=== PATIENT | female | born 1980 | race Caucasian/White ===

== ENCOUNTER → 2024-06-30 | Outpatient (CLI) | payer BC | END | disposition home or self-care (01) | LOC: RAD 15:44 | PROVIDERS: ATTEND Chiropractor | DX: M47.816 Spondylosis without myelopathy or radiculopathy, lumbar region (principal); M48.061 Spinal stenosis, lumbar region without neurogenic claudication; M47.812 Spondylosis without myelopathy or radiculopathy, cervical region | CPT/HCPCS: 72040; 72100 ==

== ENCOUNTER → 2025-03-14 | Outpatient (CLI) | payer BC ==
[2025-03-14 15:32] LABS: ABSOLUTE RETICS # 0.0736 10^6uL; BASOPHIL % 0.3 % (0.1-1.2); EOSINOPHIL # 0.1 10^3/uL (0.0-0.2); EOSINOPHIL % 1.4 % (0.0-5.0); HEMATOCRIT(ML) 42.2 % (36.0-46.0); LYMPHOCYTES # 3.39 10^3/uL1 (1.0-4.8); LYMPHOCYTES % 34.4 % (24.0-44.0); MEAN CORP HGB 29.1 pg (26-34); MEAN CORP HGB CONCENTRATION 33.2 g/dL (33-36.5); MEAN CORP VOLUME 87.7 fL (78-100); MONOCYTES # 0.7 10^3/uL (0.3-0.8); MONOCYTES % 7.1 % (5.0-12.0); NEUTROPHIL # 5.6 10^3/uL (1.8-7.7); NEUTROPHILS % 56.7 % (41.0-85.0); PLATELET COUNT 215 10^3/uL (150-400); RED BLOOD CELL 4.81 10^6/uL (4.00-5.20); RED CELL DISTRIBUTION WIDTH 13.9 % (11.5-14.5); WHITE BLOOD CELL 9.9 10^3/uL (4.5-11.0)
[2025-03-14 15:34] LABS: LEUKOCYTE ESTERASE ,URINE NEGATIVE (NEGATIVE); NITRATE,URINE NEGATIVE (NEGATIVE); PH,URINE 5.5 (4.5-8.0); UROBILINOGEN,URINE 0.2 E.U./dL (0.2)
[2025-03-14 15:37] LABS: +ADD MANUAL DIFF(NO CHRG) NO
[2025-03-14 15:40] LABS: APPEARANCE,URINE CLEAR; UA COLOR YELLOW
[2025-03-14 16:20] LABS: ALANINE AMINOTRANSFERASE(ML) 32 U/L (12-78); ALBUMIN(ML) 3.8 g/dL (3.4-5.0); ALBUMIN/GLOBULIN RATIO 1.225; ALKALINE PHOSPHATASE 74 U/L (50-136); ANION GAP 16.2; ASPARTATE AMINO TRANSFERASE 15 U/L (0-35); CALCIUM 9.4 mg/dL (8.4-10.5); CARBON DIOXIDE 22.8 mmol/L (20.0-32); CHOLESTEROL 147 mg/dL (120-240); CREATININE SERUM 0.72 mg/dL (0.59-1.40); GLUCOSE 82 mg/dL (74-106); HDL CHOLESTEROL 33 mg/dL (32-96); LDL/HDL RATIO 2.8; SODIUM 137 mmol/L (132-145); URIC ACID 7.1 mg/dL (2.6-6.0)
[2025-03-14 16:22] LABS: C-REACTIVE PROTEIN < 0.50 mg/dL (0.00-5.00)
[2025-03-15 06:13] LABS: THYROGLOBULIN ANTIBODY <1.0 IU/mL (0.0-0.9)
[2025-03-15 11:18] LABS: THYROID PEROXIDASE (TPO) AB <9 IU/mL (0-34); TRIIODOTHYRONINE (TOTALT3-REF) 98 ng/dL (71-180)
[2025-03-15 14:13] LABS: FOLLICLE STIMULATING HORMONE 4.1 mIU/mL (.)
== END | disposition home or self-care (01) ==
LOC: LAB 14:58
PROVIDERS: ATTEND Internal Medicine
DX: Z13.220 Encounter for screening for lipoid disorders (principal); I10 Essential (primary) hypertension; D64.9 Anemia, unspecified; D51.0 Vitamin B12 deficiency anemia due to intrinsic factor deficiency; E34.9 Endocrine disorder, unspecified; N95.1 Menopausal and female climacteric states; E55.9 Vitamin D deficiency, unspecified; E03.4 Atrophy of thyroid (acquired); M06.4 Inflammatory polyarthropathy; Z79.899 Other long term (current) drug therapy
CPT/HCPCS: 36415; 80050; 80061; 81003; 82043; 82306; 82570; 82607; 82670; 82728; 83001; 83002; 83036; 83550; 83721; 84436; 84439; 84480; 84481; 84550; 85045; 85651; 86140; 86376; 86800